=== PATIENT | male | born 1955 | race Caucasian/White ===

== ENCOUNTER 2025-03-11 13:51 | Inpatient (IN) | payer MEDICARE, SELFPAY ==
[2025-03-11] VITALS (35 sets, daily range): BP systolic 94–156; BP diastolic 64–94; BMI 28.0; BMI 27.4
--- NOTE | 2025-03-11 09:59 | ED.GENMED ---
History of Present Illness
General
Chief Complaint: Chest Pain
Source: patient
Exam Limitations: none
Time Seen by Provider: 03/11/25 09:48
Nursing documentation reviewed up to this point in time: agreed with
History of Present Illness
History of Present Illness:
Patient with history of CAD, status post cardiac stent placement in 2022 at [facility], presents to ED secondary to intermittent shortness of breath with chest pressure over the past 2 weeks, which has worsened in terms of frequency and
duration since then. This morning, patient woke up with chest pressure, which has not gone away. Patient currently takes aspirin and Plavix daily. Denies nausea, vomiting, dizziness, or diaphoresis. Patient states that his symptoms have come on
with exertion, but at times at rest. His symptoms are similar to 2022 when he received his cardiac stent. His primary bulb planter is at [facility]. Denies recent travel. No recent illness. Denies leg pain or swelling.
Denies back pain. Patient describes his chest pressure currently as 2 out of 10 on pain scale, but was 8 out of 10 when he woke up this morning.
Review of Systems
Review of Systems
Allergies reviewed?: Yes
All Other Systems: ROS reviewed and negative except as documented in HPI and ROS
Constitutional: Reports no symptoms
Respiratory: Reports trouble breathing; Denies cough
Cardiac: Reports chest pain
ABD/GI: Reports no symptoms
Musculoskeletal: Reports no symptoms
Skin: Reports no symptoms
Neurological: Reports no symptoms
Phy Exam
Physical Exam
Physical Exam:
Physical Exam
General: no apparent distress, not acutely ill. afebrile.
Head: nc/at. eomi
Neck: supple. normal range of motion.
Heart: s1/s2 regular rate and rhythm, no murmur.
Lungs: no acute respiratory distress. clear bilaterally
Abdomen: normal bowel sounds. not tender.
Neuro: alert and oriented x 3. no focal neurological deficits
Skin: no rash
Psychiatric: well kept. interactive and cooperative
Extremities: no edema. no calf tenderness.
Scores
Heart Score for Chest Pain Patients
STEMI patient?: No
History: Moderately Suspicious
ECG: Normal
Age: >/= 65 years
Risk Factors: >/= 3 Risk Factors or History of CAD
Troponin: </= Normal Limit
Heart Score for Chest Pain Patients: 5
Heart Score Risk: 20.3% MACE over next 6 weeks
Course
Orders/Labs/Results
Orders:
Orders
03/11/25 09:38
Electrocardiogram (*1) Urgent
Reason for Study: Chest Pain
EKG- Treatment ONCE
03/11/25 09:57
Aspirin Chewable [Low Strength Aspirin] 243 mg PO NOW STA
Nitroglycerin Sublingual [Nitrostat (Sublingual)] 0.4 mg SL NOW STA
03/11/25 09:58
CR Chest Portable - 1 View Urgent
Comment:
Reason For Exam: chest pain
Reason Study Needs to be Portable: Patient Unstable
03/11/25 10:09
Complete Blood Count/No Diff Urgent
Comprehensive Metabolic Panel Urgent
Glycohemoglobin (HgbA1c) Urgent
Magnesium Urgent
NT-proBNP Urgent
Troponin I Urgent
03/11/25 10:18
Electrocardiogram (*1) Urgent
Reason for Study: Chest Pain
EKG- Treatment ONCE
03/11/25 10:30
Nitroglycerin 100 mg/250 ml [Nitroglycerin Premix] 100 mg in 250 ml IV PER PROTOCOL
Initial dose in mcg/min, then titrate:: 10
Titrate to keep:: Chest Pain Free
Titrate by mcg/min:: 5 mcg/min, may increase by 10 mcg/min if dose > 20 mcg/min
Frequency of titrations (minutes):: every 3-5 minutes
Maximum dose in mcg/min:: 200
Begin to taper infusion when:: Remained at goal for 2hrs
Taper by mcg/min:: 5 mcg/min
Frequency of taper (minutes) if patient maintains goal:: 30
Taper to off?: Yes
If infusion off & no longer maintaining goal:: Contact Provider
03/11/25 12:23
CARDIOLOGY CONSULT Urgent
Consulting Provider: Mary Lou Dunbar
Was physician already notified: Yes
Reason for consult: chest pain
03/11/25 12:39
Admit/Transfer Patient As Directed
Co-Sign Provider:
Level of Care: Inpatient admission
Assign to:: IVU
Physician / Group: CBC
Diagnosis: Accelerating angina
Reason for Hospitalization: Accelerating angina
Expected length of stay greater than two midnights?: Yes
ELOS- Estimated Length of Stay in days: 3
I certify the patient meets the requirements for IP care: Yes
03/11/25 12:40
PRN Pain Medication Management As Directed
May give lesser potent ordered pain med per pt: Yes
preference::
Protocol:: Medication orders for pain may be administered in a
manner that supports deferring to patient preference
when the pt is:
- Requesting an ordered lesser potent pain medication.
Least to most potent pain medications are defined
as: acetaminophen < NSAID < tramadol < opioids
(morphine, oxycodone, hydromorphone).
- Requesting a lesser dose of the same medication IF
ORDERED.
- Requesting a less intrusive route of administration
if both routes are prescribed by the provider (PO <
IV).
03/11/25 12:41
Code Status As Directed
Resuscitation Status: Full Code
03/11/25 12:45
Echo 2D MMode Color/Doppler Routine
Reason for Study: Chest pain
03/11/25 12:46
Add On- LAB Routine
Tests Added?: Hgba1c
03/11/25 12:47
Records Request [Obtain Records] As Directed
Dates of Information to be Released: Most recent
Type of Information Requested: Last Office Visit H&P
ECG/Cardiology Results
Obtain Records from: Dr. Yevgeniy Bañuelos
03/11/25 13:43
Heparin 4,000 units IV NOW STA
Heparin Protocol- PTT Orders As Directed
PTT per Heparin protocol: -Obtain CBC and baseline PTT - if not already collected.
-Obtain PTT 6 hours from start of infusion. Then, every 6 hours until 2 consecutive
PTT's are therapeutic. Then, PTT Daily.
-With each rate change, obtain PTT every 6 hours until 2 consecutive PTT's are
therapeutic. Then, PTT Daily.
Notify MD As Directed
Notify physician if: PTT is greater than or equal to 200.
03/11/25 13:45
Heparin 63204 Units/250 ml 25,000 units in 250 ml IV PER PROTOCOL
Weight to be used for heparin protocol in kilograms (kg):: 86
Protocol:: Cardiac Tx/Acute Coronary
PTT Goal Range to be used:: PTT 73 to 111 seconds
Order type:: Initial
INITIAL Infusion Dose (UNITS/KG/hr) & then follow protocol:: 12 units/kg/hr
Infusion Dose in UNITS/hr & then follow protocol (UNITS/hr):: 1,000
INFUSION RATE in mL/hr & then follow protocol (mL/hr):: 10
PTT less than or equal to 64 seconds:: Increase rate by 200 units/hr (+ 2 mL/hr)
PTT 64.1 to 72.9 seconds:: Increase rate by 100 units/hr (+ 1 mL/hr)
PTT 73 to 111 seconds:: Target Range. No change in rate.
PTT 111.1 to 130.9 seconds:: Decrease rate by 100 units/hr (- 1 mL/hr)
PTT 131 to 199.9 seconds:: HOLD for 1 hr. Then decrease rate by 200 units/hr (- 2 mL/hr)
PTT greater than or equal to 200 seconds:: HOLD for 2 hrs & Notify Provider. Then decrease by 200 units/hr (-
2 mL/hr)
Lab follow-up:: Each change, PTT q6h until 2 consecutive are therapeutic. Then PTT
daily.
03/11/25 13:50
PTT Urgent
Comment: Obtain baseline before beginning heparin infusion if not already collected
Troponin I Routine
03/11/25 14:08
Acetaminophen [Tylenol] 650 mg PO Q6HPRN PRN
03/13/25 06:00
Complete Blood Count/No Diff Q2D
Comment: Notify MD if platelet count is <130,000 or decreases by 50% from baseline
03/15/25 06:00
Complete Blood Count/No Diff Q2D
Comment: Notify MD if platelet count is <130,000 or decreases by 50% from baseline
03/17/25 06:00
Complete Blood Count/No Diff Q2D
Comment: Notify MD if platelet count is <130,000 or decreases by 50% from baseline
03/19/25 06:00
Complete Blood Count/No Diff Q2D
Comment: Notify MD if platelet count is <130,000 or decreases by 50% from baseline
03/21/25 06:00
Complete Blood Count/No Diff Q2D
Comment: Notify MD if platelet count is <130,000 or decreases by 50% from baseline
03/23/25 06:00
Complete Blood Count/No Diff Q2D
Comment: Notify MD if platelet count is <130,000 or decreases by 50% from baseline
03/25/25 06:00
Complete Blood Count/No Diff Q2D
Comment: Notify MD if platelet count is <130,000 or decreases by 50% from baseline
03/27/25 06:00
Complete Blood Count/No Diff Q2D
Comment: Notify MD if platelet count is <130,000 or decreases by 50% from baseline
Abnormal Lab Results
03/11/25
10:09
RBC 4.64 L 10^6/uL
(4.70-6.10)
Hemoglobin A1c 5.9 H %
(4.0-5.6)
03/11/25 10:09
03/11/25 10:09
Vital Signs
Initial and Last Documented VS:
Initial Vital Signs
Temp Pulse Resp BP Pulse Ox
97.6 F 63 18 156/94 98
03/11/25 09:42 03/11/25 09:42 03/11/25 09:42 03/11/25 09:42 03/11/25 09:42
Last Documented Vital Signs
Temp Pulse Resp BP Pulse Ox
97.6 F 52 10 110/75 95
03/11/25 09:42 03/11/25 13:30 03/11/25 13:30 03/11/25 13:30 03/11/25 13:30
MDM/Problems Addressed
MDM/Problems Addressed:
History and exam concerning for unstable angina. Patient given 3 additional 81 mg aspirin, as patient already took his 81 mg aspirin at home this morning. In addition, patient given nitroglycerin sublingual 0.4 mg x 1, with complete resolution of
chest pressure. Afterwards, patient placed on nitroglycerin infusion.
Patient evaluated in ED by cardiology, Dr. Dunbar. Patient will be admitted for further evaluation and treatment, with consideration for potential cardiac catheterization.
*EKG
Interpreted by ED Provider?: Yes
EKG Intrepretation Date: 03/11/25
Heart Rate: 54
Rate: bradycardiac
Rhythm: sinus
Katy: normal axis
Interval: normal interval
QRS Pattern: normal QRS
*Critical Care Note
Total Time (30-74mins, 75-104mins- exclusive of procedures): Not Applicable
ED Attending Note
-
Portions of this chart may have been created with voice recognition software.� Occasional wrong word or��sound alike� substitutions may have occurred due to the inherent limitations of voice recognition software.
Discharge Plan
Departure
Patient Disposition: Admit
Date of Disposition: 03/11/25
Time of Disposition: 13:08
Admit to: IVU
Presentation/result/management discussed w/ accepting MD/DO:
Discharge Problem:
Unstable angina
Interventions
Interventions:
*Risk Screen - Suicide Last Done: 03/11/25 09:42
*General Assessment Last Done: 03/11/25 09:42
*ED- Fall Risk Assessment Last Done: 03/11/25 10:12
*ED COVID-19 Vaccine History Last Done: 03/11/25 10:12
ED- Cardiac Assessment Last Done: 03/11/25 10:13
[2025-03-11] MEDS: NITROSTAT (SUBLINGUAL) 0.4 MG SL (10:10)
[2025-03-11] MEDS: LOW STRENGTH ASPIRIN 243 MG PO (10:10)
[2025-03-11 10:20] LABS: Hematocrit 41.1 % (39.0-52.0); Hemoglobin 14.1 g/dL (13.0-18.0); Mean Corp Hgb Conc. 34.3 g/dL (33.0-37.0); Mean Corpuscular Hgb 30.4 pg (27.0-31.0); Mean Corpuscular Volume 88.6 fL (80.0-94.0); Mean Platelet Volume 9.9 fL (7.4-10.4); Platelet Count 200 10^3/uL (130-400); Red Blood Cell Count 4.64 10^6/uL (4.70-6.10); Red Cell Dist. Width 13.2 % (11.5-14.5); White Blood Cell Count 5.5 10^3/uL (4.8-10.8)
[2025-03-11 10:33] LABS: ALT (SGPT) 24 U/L (0-50); AST (SGOT) 25 U/L (17-59); Albumin 4.2 g/dl (3.5-5.0); Alkaline Phosphatase 54 U/L (38-126); Blood Urea Nitrogen 19 mg/dl (9-20); Calcium 9.8 mg/dl (8.4-10.2); Carbon Dioxide 29 mmol/L (22-30); Chloride 105 mmol/L (98-107); Estimated Creatinine Clearance 72 ml/min; Glucose 85 mg/dl (70-99); Potassium 4.3 mmol/L (3.5-5.1); Sodium 141 mmol/L (135-145); Total Bilirubin 0.6 mg/dl (0.2-1.3); Total Protein 6.8 g/dl (6.3-8.2); eGFR > 60.00
[2025-03-11] MEDS: NITROGLYCERIN PREMIX 250 IV (10:41)
[2025-03-11 10:44] LABS: NT-proBNP 39.5 pg/ml; Troponin I < 0.012 ng/ml
--- NOTE | 2025-03-11 12:48 | HPS.HSE ---
Addendum entered and electronically signed by Mary Lou Dunbar MD 03/11/25 13:43:
I saw and examined the patient.
The INCINERATOR PLANT LABORER's note was reviewed and I agree with the note.
Comment: 69-year-old gentleman with a past medical history of CAD status post PCI 2022, chronically occluded small diagonal branch, hypertension, hyperlipidemia and recent completion of XR T for prostate cancer on 03/15 presents for evaluation of
increasing shortness of breath and chest pressure. This has been happening since completion of his radiation but he was caring for his elderly mother so was putting off symptoms. He is having episodes of shortness of breath and chest pressure
worse with exertion but can also happen at times at rest. This feels similar to his prior angina. He does get relief with nitroglycerin at home and then pain recurs after it wears off. On exam he is comfortable in no apparent distress with a
regular rate and rhythm normal S1-S2 no murmurs gallops were appreciated lungs clear to auscultation bilaterally abdomen was soft extremities were warm well-perfused. EKG showed sinus bradycardia no ischemic changes, initial Trope was negative.
Overall, symptoms and history concerning for unstable angina. Would proceed to catheterization. He is already on a nitroglycerin drip and is now pain-free, can we will continue. Will start heparin drip and continue DAPT. Continue amlodipine.
May need to intensify his OMT. Will check echo. Will admit to the IVU for ongoing care. Given concern for ACS/unstable angina this is a threat to life.
Original Note:
Family Physician
-
Family Physician: Rigo Spaulding MD
Outpatient Medical Assembler: Dr. Yevgeniy Bañuelos ([facility])
Chief Complaint
-
Chest pressure
History of Present Illness
Cliff Higgins is a 69-year-old male (known to his primary windows support engineer, Dr. Yevgeniy Bañuelos) with CAD (PCI 03/10/2023 at [facility], stent location unknown), hypertension, dyslipidemia, and prostate cancer status post XRT (last treatment 02/22/2025, [facility]), who
presented to the emergency department the chief complaint of chest pressure. His chest pressure has been ongoing for approximately 2 weeks. He thinks it may have been a little bit longer. After having completed radiation, he endorse significant
fatigue but thought it was due to radiation treatment. Within the last 2 weeks he developed chest pressure. It gets worse with exertion and improves with rest. He endorses associated dizziness and nausea while trying to use the steps in his home.
He reports his chest pressure has been intermittent and moderate in severity. Initial troponin <0.012. EKG with sinus bradycardia and first-degree AV block. Records have been requested by his primary windows support engineer.
Medical History
Past Medical History
Past Medical History: Reports CAD, Cancer (Prostate s/p XRT), HTN and Hypercholesterolemia
Past Surgical History: Reports Orthopedic and Urological
Social History
Tobacco: Non-smoker
Personal:
Living: With Family
Employment: Employed
Family History
Family History: Not pertinent
Allergies / Home Medications
Allergies reflects when Allergies were last updated in [employer].
Home Medications with original date entered in [employer]
Allergy/Medication List:
Allergies:
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
Home medication list:
Acetaminophen 650 mg p.o. every 6 hours as needed mild pain
Amlodipine 5 mg p.o. daily
Vitamin C 500 mg p.o. daily
Aspirin 81 mg daily
Vitamin D3 25 mcg p.o. daily
Clopidogrel 75 mg daily
Mirabegron 50 mg p.o. daily
Pantoprazole 40 mg p.o. daily
Rosuvastatin 20 mg p.o. every evening
Review of Systems
-
History Source: Patient
A 12 point ROS was completed and negative except as noted: Yes
Constitutional: Reports See HPI
EENT: Reports No Symptoms
Respiratory: Reports See HPI
Cardiac: Reports See HPI
Abdomen/GI: Reports No Symptoms
: Reports No Symptoms
Musculoskeletal: Reports No Symptoms
Skin: Reports No Symptoms
Neurological: Reports No Symptoms
Endocrine: Reports No Symptoms
Hematologic/Lymphatic: Reports No Symptoms
Psych: Reports No Symptoms
Physical Exam
Vital Signs
Vital Signs
Temp Pulse Resp BP Pulse Ox
97.6 F 63 18 108/71 98
03/11/25 09:42 03/11/25 09:42 03/11/25 09:42 03/11/25 10:15 03/11/25 09:42
Physical Exam
General: Well Developed, Well Nourished, No Apparent Distress and Comfortable
HEENT: NormoCephalic, Anicteric and Moist mucous membranes
Respiratory: Clear and Non Labored Respirations
Cardiac: S1/S2 and Regular Rhythm
Breast: Deferred by me
GI: Soft, Non Tender, Non Distended and Normal Bowel Sounds
Rectal: Deferred by Provider
Genito-urinary: No costovertebral tender
Musculoskeletal: No Clubbing, No Cyanosis and No Edema
Skin: Warm and Dry
Neuro: AO x 3
Hematologic/Lymphatic: No Lymphadenopathy
Psych: Calm
Laboratory Results
-
03/11/25 10:09
03/11/25 10:09
Laboratory Results
Total Bilirubin 0.6 mg/dl (0.2-1.3) 03/11/25 10:09
AST 25 U/L (17-59) 03/11/25 10:09
ALT 24 U/L (0-50) 03/11/25 10:09
Alkaline Phosphatase 54 U/L (38-126) 03/11/25 10:09
Troponin I < 0.012 ng/ml 03/11/25 10:09
Data Reviewed
-
Diagnostic Radiology: Report Reviewed by me (CXR: No acute cardiopulmonary abnormality.)
Medical Tests (Nuc Med, Echo, EKG etc): Report Reviewed by me (EKG: Sinus bradycardia with first-degree AV block, rate 54)
Lab Data: Labs Reviewed by me
Old Records: Requested
Impression/Plan
-
I/P: 69M with CAD (PCI 03/10/2023 at [facility], stent location unknown), hypertension, dyslipidemia, and prostate cancer status post XRT (last treatment 02/22/2025, [facility]), who presented to the emergency department the chief complaint of chest pressure.
Outpatient Medical Assembler: Dr. Yevgeniy Bañuelos, records requested
Accelerating angina
- Chest pain-free on nitroglycerin drip
- On ASA 81 mg daily, 243 mg given in ER
- Echocardiogram
- Coronary angiography
Coronary artery disease
- Prior PCI 02/2023, on DAPT
- Not on beta-diana, assuming due to underlying bradycardia
Hypertension
- BP stable on amlodipine and nitroglycerin drip, follow
Dyslipidemia
- On rosuvastatin 20 mg
- Goal LDL <55, fasting lipid panel in a.m.
Prostate cancer
- Completed XRT at [facility] 02/22/2025
SUBJECTIVE:
As above
[2025-03-11 14:00] LABS: Glycohemoglobin (HgbA1c) 5.9 % (4.0-5.6)
[2025-03-11 14:09] LABS: APTT 32.4 Sec (23.4-35.0)
[2025-03-11] MEDS: TYLENOL 650 MG PO ×2 (14:32→20:34)
[2025-03-11 14:33] LABS: Troponin I < 0.012 ng/ml
[2025-03-11] MEDS: HEPARIN 4000 UNITS IV (14:33)
[2025-03-11] MEDS: HEPARIN 25000 UNITS/250 ML IV (14:38)
[2025-03-11] MEDS: CRESTOR 20 MG PO (17:55)
--- NOTE | 2025-03-11 19:07 | PTCARENOTE ---
Pt received from the ED awake, alert and oriented. Ambulated to the bed from the stretcher, gait steady. Denied any chest pain or sob on arrival but later stated he get 2-3/10 chest discomfort that comes and goes. IV heparin and Nitro infusing as
ordered.
--- NOTE | 2025-03-11 20:00 | PTCARENOTE ---
Received pt at change of shift resting in bed. AAOx3. Sinus chavez on the monitor. HR in the 50s. BP stable. Denies SOB. c/o headache and intermittent chest pressure as 2/10. IV nitro gtt infusing at 5 mcg/min. Offered to increase nitro gtt, pt
refused because it causes a 'worse headache and pulsing in the whole body' PRN Tylenol given--see JAN, pt verbalized a decrease in pain. Heparin gtt currently at 12mL/hr, next ptt due at 0322. Call traylor within reach.
[2025-03-11 20:55] LABS: APTT 56.2 Sec (23.4-35.0)
[2025-03-11 21:00] LABS: Troponin I < 0.012 ng/ml
[2025-03-12] VITALS (17 sets, daily range): BP systolic 95–127; BP diastolic 64–85
[2025-03-12 04:12] LABS: APTT 106.8 Sec (23.4-35.0)
[2025-03-12 04:49] LABS: Blood Urea Nitrogen 17 mg/dl (9-20); Calcium 9.4 mg/dl (8.4-10.2); Carbon Dioxide 26 mmol/L (22-30); Chloride 109 mmol/L (98-107); Estimated Creatinine Clearance 80 ml/min; Glucose 93 mg/dl (70-99); HDL Cholesterol 42 mg/dl; LDL Cholesterol, Calculated 70 mg/dl; Potassium 3.9 mmol/L (3.5-5.1); Sodium 142 mmol/L (135-145); Total Cholesterol 145 mg/dl (50-199); Triglyceride 165 mg/dl (10-149); Very Low Density Lipoprotein 33 mg/dl (0-30); eGFR > 60.00
[2025-03-12] MEDS: MYRBETRIQ EXTENDED RELEASE 50 MG PO (08:01)
[2025-03-12] MEDS: ASPIR LOW (ENTERIC COATED) 81 MG PO (08:02)
[2025-03-12] MEDS: VITAMIN D3 (cholecalciferol) 25 MCG PO (08:02)
[2025-03-12] MEDS: NORVASC 5 MG PO (08:02)
[2025-03-12] MEDS: PLAVIX 75 MG PO (08:02)
[2025-03-12] MEDS: PROTONIX 40 MG PO (08:02)
[2025-03-12] MEDS: VITAMIN C 500 MG PO (08:02)
[2025-03-12 10:12] LABS: APTT 93.3 Sec (23.4-35.0)
--- NOTE | 2025-03-12 10:21 | PTCARENOTE ---
assumed care at 0700. patient denies headache or chest pain. Nitro and heparin infusing in RAC. VSS, NPO since midnight, call traylor in reach
[2025-03-12] MEDS: HEPARIN 25000 UNITS/250 ML IV (11:31)
--- NOTE | 2025-03-12 12:19 | CM ---
spoke to pt in room, he is prev indep, lives with his in a 2 story home with 1 step to enter. he denies any dc planning needs or dme's. plan is for dc to home when medically stable.
--- NOTE | 2025-03-12 15:17 | PTCARENOTE ---
Report called to the film laboratory technician, patient taken to lab in his bed
--- NOTE | 2025-03-12 16:18 | W.DS.TRANS ---
DC Summary - Oil Field Laborer
-
Discharge Instructions:
Discharge Diagnosis/Procedures Cardiac cath
Diet Low Cholesterol
Driving Restrictions No driving for 24 hours
Instructions:
Stand-Alone Forms: DC Instructions- Cath/EP Lab
Changes to Home Medications: Yes
Discharge Medications:
DC Medications w/original date entered in [facility]
acetaminophen 325 mg tablet (Tylenol) 650 mg PO Q6HPRN PRN MILD PAIN 03/11/25
amlodipine 5 mg tablet (Norvasc) 5 mg PO DAILY 03/11/25
ascorbic acid (vitamin C) 500 mg tablet (Vitamin C) 500 mg PO DAILY 03/11/25
aspirin 81 mg tablet,delayed release 81 mg PO DAILY 03/11/25
cholecalciferol (vitamin D3) 25 mcg (1,000 unit) tablet (Vitamin D3) 25 mcg PO DAILY 03/11/25
clopidogrel 75 mg tablet (Plavix) 75 mg PO DAILY 03/11/25
mirabegron 50 mg tablet,extended release 24 hr (Myrbetriq) 50 mg PO DAILY 03/11/25
pantoprazole 40 mg tablet,delayed release (Protonix) 40 mg PO DAILY 03/11/25
rosuvastatin 20 mg tablet (Crestor) 20 mg PO QPM 03/11/25
metoprolol succinate 25 mg tablet,extended release 24 hr (Toprol XL) 25 mg PO DAILY #90 tabs 03/12/25
Home Medication Changes
new to metoprolol
Pending Results: No
--- NOTE | 2025-03-12 16:37 | PTCARENOTE ---
Patient received from the laboratory animal care veterinarian, AO x 3, chest pain free. NSR, BP 105/78, POX right hand 97% right radial band intact. at bedside, call traylor in reach
[2025-03-12] MEDS: CRESTOR 20 MG PO (18:26)
--- NOTE | 2025-03-12 18:34 | PTCARENOTE ---
Patient comfortable in bed, denies pain. Right radial band with 1 cc of air remaining in the band. Discharge teaching completed and patient verbalized understanding. New medication called into pharmacy and family did already spanish moss picker for patient.
Will discharge to home after band is off
--- NOTE | 2025-03-12 18:40 | ITS.CL.PN ---
Small Piece Cutter - Procedure Note
Procedure
Procedure Note:
CARDIAC CATHETERIZATION REPORT
Date of Procedure: 03/12/2025
Referring: Dr. Karen Dunbar MD
Indication: ACS
PROCEDURE(S)
1. left heart catheterization
2. coronary angiography
ACCESS: 6F right radial artery (closure: radial band)
CATHETERS
1. 6F JR4
2. 6F JL3.5
MODERATE SEDATION: 25 minutes of moderate sedation was utilized. An independent medical authorization specialist was present to assist with and help manage the patient's level of consciousness and physiologic status.
HEMODYNAMIC DATA
LV 125/9 (EDP 16) mmHg
AO 123/78 (mean 99) mmHg
CORONARY ANGIOGRAPHY
Dominance: Right
LM: Large, normal
LAD: Large vessel giving rise to a moderate caliber diagonal branch. The diagonal is totally occluded proximately with left to left collaterals. This was reported on prior angiography. There is otherwise no coronary artery disease.
LCx: Large vessel giving rise to a small OM1, moderate caliber OM2, and large OM3. There is a widely patent stent in the OM 3 and otherwise no coronary artery disease.
RCA: Large vessel giving rise to moderate caliber RPDA, moderate caliber RPL1, and small RPL2. There is no coronary artery disease.
RADIATION: dose 250 mGy; DAP 14.9 Gy*cm2; fluoroscopy time 2.2 min
CONCLUSIONS
1. Stable single-vessel coronary artery disease in a right dominant system with DREDGE ENGINEER of moderate caliber diagonal branch (previously reported) and no acute lesion to explain the patient's chest pain syndrome
2. Mildly elevated LV filling pressure and no aortic stenosis
RECOMMENDATIONS
1. Secondary prevention of coronary artery disease
2. Addition of low-dose metoprolol for treatment of possible anginal chest pain
Copy to: Dr. Yevgeniy Bañuelos MD (overnight associate); Dr. Rigo Spaulding MD (PCP)
Signed: Huy Castrejon MD, PhD
--- NOTE | 2025-03-12 19:52 | PTCARENOTE ---
Assumed care of patient at change of shift. Tele monitor shows SR, sating 95 % RA, and VSS. Denies any pain or discomfort. TR band removed at 19:30 w/out any complications. Patient and spouse aware of activity restrictions, and verbalized
understanding. Tele pack and IV site removed. All personal belongings sent w/ patient. Day shift Isiah ISSA gave patient discharge instructions. Patient d/c via WC w/ all personal belongings.
== END 2025-03-12 19:54 | disposition home or self-care (01) | DRG 287 ==
LOC: IVU 13:51
PROVIDERS: Nurse Practitioner Gerontology; Student in an Organized Health Care Education/Training Program; ADMITTING PHYSICIAN Internal Medicine Cardiovascular Disease; EMERGENCY PHYSICIAN Emergency Medicine; FAMILY PHYSICIAN Student in an Organized Health Care Education/Training Program
PROC: 4A023N7 Measurement of Cardiac Sampling and Pressure, Left Heart, Percutaneous Approach (ICD-10-PCS; 2025-03-12)
PROC: B2111ZZ Fluoroscopy of Multiple Coronary Arteries using Low Osmolar Contrast (ICD-10-PCS; 2025-03-12)
DX: I25.110 Atherosclerotic heart disease of native coronary artery with unstable angina pectoris (principal); I10 Essential (primary) hypertension; C61 Malignant neoplasm of prostate; I44.0 Atrioventricular block, first degree; Z79.02 Long term (current) use of antithrombotics/antiplatelets; Z79.82 Long term (current) use of aspirin; Z85.46 Personal history of malignant neoplasm of prostate
CPT/HCPCS: 71045; 80048; 80053; 80061; 83036; 83735; 83880; 84484; 85027; 85730; 93005; 93306; 93458; 96374; 99152; 99153; 99285; C1894; Q9967